=== PATIENT | female | born 1970 | race Caucasian/White ===

== ENCOUNTER 2021-09-06 12:02 | Emergency (ER) | payer BC ==
[~2021-09-06] VITALS: Ht 162.6 cm; Wt 84.0 kg
[2021-09-06 12:23] VITALS: BP 159/97
[2021-09-06] MEDS ORDERED: SILV50CR31 TOP (13:24)
[2021-09-06] MEDS ORDERED: bacitracin 15gm ointment TP ONE (14:20)
[2021-09-06] MEDS ORDERED: CEPH250T PO (14:31)
== END 2021-09-06 15:13 | disposition home or self-care (01) ==
LOC: ER 12:03
DX: T23.231A Burn of second degree of multiple right fingers (nail), not including thumb, initial encounter (principal); Z98.890 Other specified postprocedural states; Z98.51 Tubal ligation status; Z88.5 Allergy status to narcotic agent; Z88.1 Allergy status to other antibiotic agents; Z88.6 Allergy status to analgesic agent; Z79.899 Other long term (current) drug therapy; X08.8XXA Exposure to other specified smoke, fire and flames, initial encounter; Y93.89 Activity, other specified; Y92.89 Other specified places as the place of occurrence of the external cause; Y99.8 Other external cause status
CPT/HCPCS: 16000; 99283